=== PATIENT | male | born 1975 | race Caucasian/White ===

== ENCOUNTER 2025-01-02 14:17 | Emergency (ER) | payer OTHER, SELFPAY ==
--- OUTSIDE RECORDS SUMMARY | 2018-08-21 05:30 | XMS_ITS | Continuity of Care Document ---
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 Role Phone Chris Rice MD Unavailable Unavailabl e Allergies, Adverse Reactions, Alerts Substance Reaction Status Criticality No Known Allergies Active No Inform ation Medications Medication Instructions Dosage Effective Dates (start - stop) Status Comments [place] 5 mg-325 mg tablet take 1 - 2 Tablet by oral route every 4 - 6 hours as needed for pain 1-2 Tablet - Active cyclobenzaprine 5 mg tablet take 1 tablet by oral route 3 times every day 5 MG - Active Procedures Procedure Date Office/outpatient visit,[facility] 2018 X-ray exam lwr spine, min 4 views Advance Directives Directive Yes / No Effective Date File Name No Information Encounters Encounter Description Practice Location Reason(s) For Visit Diagnoses Date Provider Providers Copied on Encounter Office/outpat ient visit,[facility], [facility], [address] [place], [address], [place] tel:[phone] [address] [place] [address] No Information 201 9 Krystal Perez. [address], [place], [id number], [place]. tel:[phone] Referring Provider: Celestina Johnson, [address] [place], [address]. tel:[phone] Family History Family Member Type Diagnosis Age At Onset No Information Payers Payer name Insurance type Covered democrat ID Authoriza tion(s) No Information Social History Type Description Quantity Date Captured Comments Sex Male Smoking Status No Information Vital Signs Date / Time: Height Weight BMI Pulse Rate Blood Pressure Temperature Respiratory Rate Body Surface Area Head Circumference Head Circ. Percentile Wt./Anuj. Percentile BMI percentile Pulse Ox Inhaled Ox 10:33 AM 72.00 in 85.275 kg (188.00 lbs) 25.5 0 kg/m eter (2) Chief Complaint And Reason For Visit No Information Reason For Referral Reason For Referral No Information History Of Present Illness Encounter Date Complaint History Of Prese nt Illness No Information Functional Status Date Functional Assessmen t No Information Instructions Date Instruction Additional Infor mation No Information Assessments Type Assessment Date No Information Patient Care Teams Name Effective Dates (start - stop) Status Members No Information
[2025-01-02 14:44] VITALS: BP 141/99; PULSE 92; PULSE 96; RESP 16; TEMP 36.9; O2SAT 98; O2SAT 99; BMI 24.4
--- NOTE | 2025-01-02 14:50 | XR_ITS ---
PROCEDURE INFORMATION: Exam: XR Left Hand Exam date and time: 01/02/2025 3:18 PM Age: 49 years old Clinical indication: Other: Laceration; Prior surgery; Surgery date: 6+ months; Surgery type: Pins placed & ligaments repaired; Additional info: Laceration to 5th mcp joint, cutting aluminum TECHNIQUE: Imaging protocol: Radiologic exam of the left hand. Views: 3 or more views. COMPARISON: No relevant prior studies available. FINDINGS: Bones/joints: Previous internal fixation of the base of the 5th metacarpal. Soft tissues: Normal. Other findings: No acute findings. IMPRESSION: No acute findings.
--- OUTSIDE RECORDS SUMMARY | 2025-01-02 14:50 | XMS_ITS ---
Author Organization Unknown ENCOUNTERS Encounter Performer Location Date Diagnosis Diagnosis Status Pre Admit [facility] [address] [place] [address] [id number] Emergency [facility] [address] [place] [address] [phone] *Note: Encounters from your own facility or health system may be excluded. Allergies, Adverse Reactions, Alerts Allergen Type Severity Identification Date Medications Name Date Quantity Days Supplied GPI Number
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
[2025-01-02 15:00] VITALS: BP 124/92; O2SAT 98
[2025-01-02] MEDS: TET/DIPHTH/PERT-ADULT 0.5ML SYRINGE 0.5 ML IM (15:01)
[2025-01-02] MEDS: LIDOCAINE 1% 10ML MDV 10 ML IJ (15:58)
[2025-01-02 17:04] VITALS: BP 140/85; PULSE 85; RESP 15; TEMP 36.7; O2SAT 99
== END 2025-01-02 17:05 | disposition home or self-care (01) ==
PROVIDERS: Emergency Provider Emergency Medicine; PCP Family Medicine
DX: S61.412A Laceration without foreign body of left hand, initial encounter (principal); W26.8XXA Contact with other sharp object(s), not elsewhere classified, initial encounter
CPT/HCPCS: 12001; 73130; 90471; 90715; 99283; 99284; J2003